=== PATIENT | female | born 1995 | race Caucasian/White ===

== ENCOUNTER 2016-12-03 08:12 | Emergency (ER) | payer MEDICAID, OTHER ==
--- OUTSIDE RECORDS SUMMARY | 2016-12-03 09:02 | XMS REPORT | Continuity of Care Document ---
:1995 Author Organization [facility] ([facility]) Address [address] [place] [address] Phone [phone] Care Team Providers Name Role Phone Mike Hardy Primary Care Provider [phone] Source Comments This disclosure is being made pursuant to the Care Everywhere program, applicable federal and state laws, and may not contain all informaitonavailable regarding this patient.[facility] ([facility]) Active Allergies and Adverse Reactions No Active Allergies Current Medications Prescription Sig. Disp. Refills Start Date End Date Status methylphenidate 54 mg take 54 mg by mouth Active CR tablet daily. methylphenidate 36 mg take 36 mg by mouth Active CR tablet daily. magnesium hydroxide 80 take 15 mL by mouth 1 Bottle 11 01/03/2009 Active mg/mL suspension daily. 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7 m (5' 6.93") 05/09/2010 3:38 PM CDT Weight 66.6 kg (146 lb 13.2 oz) 05/09/2010 3:38 PM CDT Body Mass Index 23.04 05/09/2010 3:38 PM CDT Oxygen Saturation - - Plan of Care Health Maintenance Due Date Last Done Comments HPV Vaccine (1 of 3 - 2004 Female/Unknown 3 Dose Series) Tdap Vaccine 2004 Cervical Cancer Screening 2011 Lipid Disorder Screening 2011 Td Vaccine 2011 10/24/1997, Additional history exists 07/25/1994, 1993 Varicella Vaccine (1 of 2 - 2011 Adult - No Evidence of Immunity) Influenza Vaccine: Seasonal 03/23/2016 (#1) Hepatitis B Vaccine Completed 07/25/1994, 02/12/1994, 1993 MMR Vaccine Completed 10/24/1997, 07/25/1994 Results from Last 3 Months Not on file
--- NOTE | 2016-12-03 09:34 | ERNOTE ---
Abdominal HPI - Narrative Date of Service: 12/03/16 - General Chief Complaint: Constipation Time Seen by Provider: 12/03/16 09:31 Source: patient - Immun/Allergies/Home Medications Immunizatons: IMMUNIZATION HX Immunizations Up to Date No History of Influenza Vaccine No Hx Pneumococcal Vaccination No Allergies/Adverse Reactions: Allergies atomoxetine HCl [From Strattera] Adverse Reaction (Mild, Verified 12/03/16 08:40 ) mood swings Home Medications: HOME MEDICATIONS Pnv Cmb#21/Iron/Folic Acid [ Complete Caplet] 1 each PO DAILY 12/03/16 [ Last Taken Unknown] - History of Present Illness Narrative: PT STATES SHE THINKS SHE HAS BEEN CONSTIPATED FOR 1 WEEK. SHE TRIED 2 DUCOLAX TABS AT HOME YESTERDAY WITH NO RESULTS. WAS ALSO CONSTIPATED LAST WEEK AND TOOK TWO DUCOLAX THEN WITH GOOD RESULTS. STATES SHE IS WITH 3 HOME PREG TESTS + LATE LAST MONTH. LMP = SEP 15. SHE DENIES ANY MEDS OR ILLNESSESS. STATES NO UTI SX. NO VAG BLEEDING. SHE TRIES TO DRINK 6-8 GLASSES OF FLUID / DAY. SHE HAS NO KNOWN ALLERGIES. Review of Systems - Review of Systems Constitutional: Present: See HPI Gastrointestinal/Abdominal: Present: See HPI, constipation All Other Systems: All systems neg except as marked - Patient's Past Medical History Patient History - Medical: ADHD, Anxiety, Hypothyroidism, Other Patient History - Cardiac/Respiratory: No pertinent hx Patient History - Cancer: No Hx of Cancer Patient History - Surgical Procedures: No surgical history, Orthopedic - ARTHROSCOPY OF RIGHT ANKLE Patient History - Other: None LMP (Calendar): 05/03/16 - Family History Mother Family History - Medical: Diabetes Type 2 Family History - Cardiac/Respiratory: No pertinent hx Father Family History - Medical: History Unknown Family History - Cardiac/Respiratory: History Unknown - Social History Living Situations: home Abuse History: Hx of Substance Use Psych History: Hx of Anxiety, Hx of Depression, Hx of Bipolar Disorder Smoking Status: Never smoker Have you smoked in the past 12 months: No Do you dip or chew tobacco: No Alcohol Use: none Drug Use: marijuana - Immunizations Immunizations Up to Date: No Hx Pneumococcal Vaccination: No History of Influenza Vaccine: No Physical Exam - Physical Exam General Appearance: Present: wd/wn, alert, no apparent distress Respiratory: Present: no respiratory distress, normal breath sounds, no accessory muscle use, chest nontender, lungs clear Cardiovascular/Chest: Present: regular rate, rhythm, no murmur, normal peripheral pulses Gastrointestinal/Abdominal: Present: normal bowel sounds, nontender, nondistended, soft, no organomegaly Back Exam: Present: normal inspection, normal range of motion, no CVA tenderness , no vertebral tenderness Neurological Exam: Present: alert, oriented ED Progress - Vital Signs Vital Signs: Vital Signs 12/03/16 12/03/16 08:33 08:41 Temperature 36.5 C Pulse Rate 94 Respiratory 16 Rate Blood Pressure 140/85 127/62 O2 Sat by Pulse 100 Oximetry - Progress/Reassessment Chief Complaint: Constipation Departure - Departure Clinical Impression: Constipation Disposition: Home self-care Condition: Good Instructions: Constipation, Adult, [id number] Additional Instructions: DRINK EXTRA FLUIDS. TRY PRUNE JUICE. EAT EXTRA FIBER AND LOWER FATS. TRIAL OF REGULAR BENEFIBER FOR 2-4 WEEKS . IN ORDER TO GET BOWELS CLEAR USE 1-2 FLEETS ENEMAS, AVAILABLE OVER THE COUNTER. SEE FAMILY DR FOR FURTHER PROBLEMS. Referrals: Daysi Jarrell MD [Primary Care Provider] -
[2016-12-03 10:06] VITALS: BP 124/78
== END 2016-12-03 10:00 | disposition home or self-care (01) ==
LOC: ER 08:12
DX: K59.00 Constipation, unspecified (principal)

== ENCOUNTER 2017-07-17 10:20 | Inpatient (IN) | payer MEDICAID ==
[2017-07-17] MEDS ORDERED: OXYTOCIN/DEXTROSE 5%-WATER 30 UNITS/500 ML BAG IV ONE (10:35)
[2017-07-17] MEDS ORDERED: ONDANSETRON HCL/PF 2 MG/ML VIAL IV PRN ×2 (10:35→17:09)
[2017-07-17] MEDS ORDERED: RINGER'S SOLUTION,LACTATED 1,000 ML IV ONE (10:35)
[2017-07-17] MEDS ORDERED: LIDOCAINE HCL 50 ML VIAL PERI PRN (10:35)
[2017-07-17] MEDS ORDERED: PENICILLIN G POTASSIUM 5 MILLIONUNT in DEXTROSE 5 % IN WATER 100 ML IV ONE ×2 (10:35)
[2017-07-17] MEDS: DEXTROSE 5%-LACTATED RINGERS 1,000 ML IV PRN ×4 (11:37→22:08)
[2017-07-17 14:01] LABS: Cocaine Ur Negative (NEGATIVE); Urine Barbiturate Negative (NEGATIVE); Urine Benzodiazepines Negative (NEGATIVE); Urine Opiates Negative (NEGATIVE); Urine PCP Negative (NEGATIVE); Urine THC Negative (NEGATIVE)
[2017-07-17] MEDS: PENICILLIN G POTASSIUM 2.5 MILLIONUNT in DEXTROSE 5 % IN WATER 100 ML IV SCH ×6 (15:14→22:23)
[2017-07-17] MEDS ORDERED: BUPIVACAINE HCL/0.9 % NACL/PF 250 ML EP PRN (17:09)
[2017-07-17] MEDS ORDERED: NALOXONE HCL 1 MG/1 ML SYRG IV PRN (17:09)
[2017-07-17] MEDS ORDERED: fentaNYL CITRATE/PF 50 MCG/ML AMPUL IT SCH (17:15)
--- NOTE | 2017-07-17 18:01 | OR ---
Anesthesia Procedure Note - Anesthesia Procedure Note Narrative: Vital Signs - Last Taken Temp 36.4 C L 07/17/17 17:32 Pulse 90 07/17/17 17:32 Resp 18 07/17/17 17:32 BP 121/84 07/17/17 17:32 Pulse Ox 98 07/17/17 17:32 07/17/17 18:00 ANESTHESIA PROCEDURE NOTE Date of Procedure: 07/17/2017 Time of procedure: 1740. Performed by: Shlomo Levy CRNA Microbial Specialist: None. Preprocedure diagnosis: Active labor. Post procedure diagnosis: Same. Procedure: Insertion of labor epidural. Indications: The patient is a 22 -year-old prima para female in active labor requesting labor epidural for pain management. Findings: See below. Details of the procedure: The patient was placed in a sitting position. Back was prepped with DuraPrep. Patient was then draped in a sterile fashion. Lidocaine 1% was infiltrated to the skin and subcutaneous tissues at the level of the L3 4 interspace. The epidural space was identified using a 18-gauge Tuohy needle with [id number] technique. 20 mcg fentanyl was given intrathecally using a 27 ga. spinal needle. Epidural catheter was inserted without difficulty. Negative test dose was elicited using 5 mL of 1.5% preservative-free lidocaine plus epinephrine 1 200,000. The epidural catheter was then taped and secured in place. EBL: Minimal. Fluids: N/A. Specimen: N/A. Post procedure condition: The patient tolerated the procedure well. No complications were noted. Thank you for this consultation. Crawford CRNA
[2017-07-18] MEDS ORDERED: LIDOCAINE HCL 50 ML VIAL IJ ONE (01:40)
--- NOTE | 2017-07-18 02:41 | OR ---
Operative Report - Dictated Report Narrative: Spontaneous vaginal delivery of viable male at 0129 on 07/18/2017 with Apgars 9 and 9, weighing 3102 g in NUHA position. Cord clamping delayed approximately 1 minute Placenta delivered complete, intact, with three vessel cord Estimated blood loss: less than 50 ml Lacerations: First-degree right labial/clitoral flores laceration (3 cm) repaired with 4-0 Vicryl Rapide.
[2017-07-18] MEDS ORDERED: GLYCERIN/WITCH HAZEL LEAF 40 APPL BOX TP PRN (02:42)
[2017-07-18] MEDS ORDERED: SENNOSIDES 8.6 MG TABLET PO PRN (02:42)
[2017-07-18] MEDS ORDERED: oxyCODONE HCL/ACETAMINOPHEN 1 TAB TABLET PO PRN (02:42)
[2017-07-18] MEDS ORDERED: OXYTOCIN/DEXTROSE 5%-WATER 500 UNITS/8,333.33 ML BAG IV ONE (02:42)
[2017-07-18] MEDS ORDERED: BENZOCAINE/MENTHOL 81 SPRAY CAN TP PRN (02:42)
[2017-07-18] MEDS ORDERED: HYDROCORTISONE 30 APPL TUBE TP PRN (02:42)
[2017-07-18] MEDS ORDERED: BISACODYL 10 MG SUPP.RECT RC PRN (02:42)
[2017-07-18] MEDS: IBUPROFEN 800 MG TABLET PO PRN (03:13)
[2017-07-18] MEDS: oxyCODONE HCL/ACETAMINOPHEN 1 TAB TABLET PO PRN ×2 (03:13→23:31)
[2017-07-18] MEDS: PENICILLIN G POTASSIUM 2.5 MILLIONUNT in DEXTROSE 5 % IN WATER 100 ML IV SCH ×2 (04:14)
[2017-07-18] MEDS: DOCUSATE SODIUM 100 MG CAPSULE PO SCH ×2 (15:49→22:23)
[2017-07-18] MEDS: PRENATAL VITS96/IRON FUM/FOLIC 1 TAB TABLET PO SCH (15:49)
--- NOTE | 2017-07-19 01:05 | PN ---
Subjective - Date and Time Seen Date: 07/19/17 Time: 01:04 Objective - Vitals Vitals: Last Vital Signs Temp 37.0 C 07/18/17 19:49 Pulse 85 07/18/17 19:49 Resp 16 07/18/17 19:49 BP 121/78 07/18/17 19:49 Pulse Ox 96 07/18/17 19:49 Patient complains of minor pain from laceration. Lochia wnl Abdomen - soft, nontender Uterus - firm, at umbilicus - 1 No calf tenderness Impression: day #1 - s/p spontaneous vaginal delivery. First-degree labial/clitoral laceration with repair Plan: Continue routine care Cauti Physician Documentation - Urinary Catheter Management Urethral (Corbin) Date of Insertion: 07/17/17 Time of Insertion: 18:05
[2017-07-19] MEDS: PRENATAL VITS96/IRON FUM/FOLIC 1 TAB TABLET PO SCH (10:31)
[2017-07-19] MEDS: DOCUSATE SODIUM 100 MG CAPSULE PO SCH (10:31)
[2017-07-20] MEDS: DOCUSATE SODIUM 100 MG CAPSULE PO SCH ×2 (03:56→08:31)
[2017-07-20] MEDS: PRENATAL VITS96/IRON FUM/FOLIC 1 TAB TABLET PO SCH (08:30)
[2017-07-20] MEDS: IBUPROFEN 800 MG TABLET PO PRN (08:31)
[2017-07-20] MEDS: oxyCODONE HCL/ACETAMINOPHEN 1 TAB TABLET PO PRN (08:31)
[2017-07-20 09:01] VITALS: BP 122/80
--- NOTE | 2017-07-20 09:42 | PN ---
Subjective - Date and Time Seen Date: 07/20/17 Time: 09:40 Objective - Vitals Vitals: Last Vital Signs Temp 36.3 C L 07/20/17 08:34 Pulse 65 07/20/17 08:34 Resp 20 07/20/17 08:34 BP 122/80 07/20/17 08:34 Pulse Ox 100 07/20/17 08:34 Patient denies complaints. Lochia wnl Abdomen - soft, nontender Uterus - firm, at umbilicus - 2 No calf tenderness Impression: day #2 - s/p spontaneous vaginal delivery. Bipolar disorder-stable Plan: Routine discharge instructions. Appointment made to follow-up with psychiatry in 2-4 weeks to resume her medications. Cauti Physician Documentation - Urinary Catheter Management Urethral (Corbin) Date of Insertion: 07/17/17 Time of Insertion: 18:05
== END 2017-07-20 13:35 | disposition home or self-care (01) | DRG 775 ==
LOC: OBCLINIC 10:20 → OB 10:23
PROVIDERS: ADMIT Obstetrics & Gynecology; ATTEND Obstetrics & Gynecology
PROC: 10E0XZZ Delivery of Products of Conception, External Approach (ICD-10-PCS; principal; 2017-07-18)
PROC: 4A1HXCZ Monitoring of Products of Conception, Cardiac Rate, External Approach (ICD-10-PCS; 2017-07-18)
PROC: 0HQ9XZZ Repair Perineum Skin, External Approach (ICD-10-PCS; 2017-07-18)
PROC: 00HU33Z Insertion of Infusion Device into Spinal Canal, Percutaneous Approach (ICD-10-PCS; 2017-07-18)
DX: O99.824 Streptococcus B carrier state complicating childbirth (principal); O70.0 First degree perineal laceration during delivery; O42.02 Full-term premature rupture of membranes, onset of labor within 24 hours of rupture; E03.9 Hypothyroidism, unspecified; F41.9 Anxiety disorder, unspecified; Z3A.40 40 weeks gestation of pregnancy; Z37.0 Single live birth